=== PATIENT | female | born 1970 | race Two or more races ===

== ENCOUNTER 2024-07-20 11:57 | Outpatient (CLI) | payer OTHER, SELFPAY | END 2024-07-20 11:58 | disposition home or self-care (01) | LOC: NFLDREF 17:34 | PROVIDERS: Visit Provider Nurse Practitioner Family | DX: N30.90 Cystitis, unspecified without hematuria (principal); M54.9 Dorsalgia, unspecified; S39.012A Strain of muscle, fascia and tendon of lower back, initial encounter | CPT/HCPCS: 87086; 87186 ==

== ENCOUNTER 2024-07-28 13:27 | Outpatient (CLI) | payer OTHER, SELFPAY | END 2024-07-28 13:28 | disposition home or self-care (01) | LOC: NFLDUCREF 13:29 | PROVIDERS: Visit Provider Nurse Practitioner | DX: M54.50 Low back pain, unspecified (principal) | CPT/HCPCS: 87086 ==

== ENCOUNTER 2025-01-21 12:52 | Emergency (ER) | payer OTHER, SELFPAY ==
[2025-01-21 13:38] VITALS: BP 123/84; PULSE 97; RESP 16; TEMP 36.5; O2SAT 95; BMI 27.1
--- NOTE | 2025-01-21 13:43 | ED.GENADULT ---
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 Pt reports she fell and injured her right knee a few days ago. Now it is painful and swollen. Rates pain currently at 10/10. Pt was ambulatory into triage. 54-year-old woman presenting to the emergency department with concern of right knee pain and swelling. She fell on her knee a few days ago. Did not injure anything else. Sounds like about 3 days ago. Has been increasingly painful to ambulate. She is able to bear weight but it hurts a good deal. Related Data Home Medications ?Medication ?Instructions ?Recorded ?Confirmed No Known Home Medications 01/21/25 01/21/25 Allergies Allergy/AdvReac Type Severity Reaction Status Date / Time No Known Drug Allergies Allergy Verified 07/28/24 13:02 Review of Systems Status of ROS: Reports: 6 or more systems reviewed and unremarkable except as noted in History and below PFSH PFS Social History Smoking Status: Never smoker How often do you have a drink containing alcohol: never AUDIT-C Alcohol total score: 0 Non-prescribed substance use: denies use Exam Narrative: Exam Narrative: Pleasant. Lying in exam bed with legs uncovered. Notable swelling to the right knee without inflammatory changes. Diffusely tender but also tender but she mentions in particular the lower outer aspect of the knee. Moderate effusion noted about the knee. Tender also over the lower patella. Negative Tim's. No laxity to varus or valgus stressors. Const: Vital Signs, click to edit/add: Vital Signs - 24 hr 01/21/25 13:38 Temperature 97.7 F Pulse Rate [Pulse Oximeter] 97 Respiratory Rate 16 Blood Pressure [Ri ght Upper Arm] 123/84 Pulse Oximetry 95 Oxygen Delivery Me thod Room Air Documenting provider has reviewed patient's vital signs: yes Course Vital Signs Vital signs: Initial Vital Signs Temperature 97.7 F 01/21/25 13:38 Temperature Source Temporal Artery Scan 01/21/25 13:38 Pulse Rate 97 01/21/25 13:38 Respiratory Rate 16 01/21/25 13:38 Blood Pressure 123/84 01/21/25 13:38 Blood Pressure Mean 97 01/21/25 13:38 Blood Pressure Position Sitting 01/21/25 13:38 Pulse Oximetry 95 01/21/25 13:38 Oxygen Delivery Method Room Air 01/21/25 13:38 Vital Signs Temperature 97.7 F 01/21/25 13:38 Pulse Rate 97 01/21/25 13:38 Respiratory Rate 16 01/21/25 13:38 Blood Pressure 123/84 01/21/25 13:38 Pulse Oximetry 95 01/21/25 13:38 Oxygen Delivery Method Room Air 01/21/25 13:38 Temperature 97.7 F 01/21/25 16:43 Pulse Rate 85 01/21/25 16:43 Respiratory Rate 16 01/21/25 16:43 Blood Pressure 116/59 L 01/21/25 16:43 Pulse Oximetry 95 01/21/25 13:38 Oxygen Delivery Method Room Air 01/21/25 13:38 Medications Administered Medications: Discontinued Medications Generic Name Dose Route Start Last Admin Trade Name Felipe PRN Reason Stop Dose Admin Ibuprofen 600 mg 01/21/25 13:57 01/21/25 14:09 Ibuprofen 200 Mg Tablet PO 01/21/25 13:58 600 mg ONCE ONE Administration Medical Decision Making MDM Narrative Medical decision making narrative: Will start with x-ray. Offered ibuprofen as well as an ice pack. I think less likely to be with internal injury other than possible labral tear but otherwise would want to assess for bony injury. Tibial plateau? X-ray independently reviewed by me looks to be without acute bony abnormality. Some osteoarthritic changes. Contusion of the anterior compartment or possible labral tear? Given knee immobilizer. Able to bear weight. Discussed options for pain medication See patient discharge plan for further discussion You may have injured some of the soft tissue in your right knee. It is also possible there is a fracture there that we have not yet identified. Please wear this knee immobilizer over this next week so that you limit discomfort and inflammation. I would ice your knee a couple of times daily over the next few days. If this is not improved significantly by next week, please follow-up with orthopedics at phone number [phone]. Can take up to 600 mg of ibuprofen or up to 1000 mg of acetaminophen per dose. As discussed am prescribing a small quantity of [employer] for you if needed. Remember that each tablet of [employer] contains 325 mg of acetaminophen. Discharge Plan Discharge Clinical Impression: Knee pain, right Patient Disposition: Home w/ Parent or Adult Condition: Improved Additional Instructions: You may have injured some of the soft tissue in your right knee. It is also possible there is a fracture there that we have not yet identified. Please wear this knee immobilizer over this next week so that you limit discomfort and inflammation. I would ice your knee a couple of times daily over the next few days. If this is not improved significantly by next week, please follow-up with orthopedics at phone number [phone]. Can take up to 600 mg of ibuprofen or up to 1000 mg of acetaminophen per dose. As discussed am prescribing a small quantity of [employer] for you if needed. Remember that each tablet of [employer] contains 325 mg of acetaminophen. Es posible que se haya herido parte del tejido suave de la rodilla derecha. Tambi?n es posible que tenga nacho fractura que a?n no hemos identificado. Use johnathan inmovilizador de rodilla walter la pr?xima semana para minimizar las molestias y la inflamaci?n. Le aplicar?a hielo en la rodilla un par de veces al d?a walter los pr?ximos d?as. Si no mejora significativamente para la pr?xima semana, consulte con el ortopedista al [phone]. Puede eun hasta 600 mg de ibuprofeno o hasta 1000 mg de acetaminof?n por dosis. Mariano ya se mencion?, le recetar? nacho savanah?a cantidad de [employer] si es necesario. Recuerde que cada tableta de [employer] contiene 325 mg de acetaminof?n. Prescriptions: No Action No Known Home Medications Follow Up/Referrals: Provider,Not a Local [Primary Care Provider, Family Practice] Stand Alone Forms: [employer] Info Instructions
--- NOTE | 2025-01-21 13:56 | CRLHL7_ITS ---
For Patients: As a result of the Cures Act, medical imaging exams and procedure reports are released immediately into your electronic medical record. You may view this report before your referring provider. If you have questions, please contact your health care provider. INDICATION: Trauma. TECHNIQUE: Right knee radiographs, 3 views. COMPARISON: None. FINDINGS: No acute fractures or dislocation. Mild tricompartment osteoarthritic degeneration. No significant joint effusion. No significant soft tissue edema or radiopaque foreign bodies. IMPRESSION: No acute fractures or dislocation. Dictated by Will Rainey MD @ 01/21/2025 2:52:27 PM (Electronically Signed)
[2025-01-21] MEDS: IBUPROFEN 200 MG TABLET 600 MG PO (14:09)
[2025-01-21 16:43] VITALS: BP 116/59; PULSE 85; RESP 16; TEMP 36.5
== END 2025-01-21 16:44 | disposition home or self-care (01) ==
PROVIDERS: Emergency Provider Family Medicine
DX: M25.561 Pain in right knee (principal)
CPT/HCPCS: 73562; 99283; 99284; A9270